=== PATIENT | male | born 1975 | race African-American/Black ===

== ENCOUNTER 2022-01-11 00:53 | Emergency (ER) | payer OTHER ==
[~2022-01-11] VITALS: Ht 165.1 cm; Wt 72.6 kg
[2022-01-11 00:53] VITALS: BP 148/103
[2022-01-11] MEDS ORDERED: KETOROLAC TROMETH 60MG/2ML VIAL IM ONE (07:00)
[2022-01-11] MEDS ORDERED: TETANUS-DIPTH-ACEL PERTUSSIS 0.5ML SYR Tdap IM ONE (07:15)
[2022-01-11] MEDS ORDERED: NEOMYCIN-BACITRACIN-POLYM UNITDOSE PKG TOP OINT TOP ONE (08:00)
== END 2022-01-11 08:02 | disposition home or self-care (01) ==
LOC: ER 00:53
DX: S61.441A Puncture wound with foreign body of right hand, initial encounter (principal); S61.247A Puncture wound with foreign body of left little finger without damage to nail, initial encounter; V89.2XXA Person injured in unspecified motor-vehicle accident, traffic, initial encounter; Y93.89 Activity, other specified; Y92.89 Other specified places as the place of occurrence of the external cause; Y99.8 Other external cause status
CPT/HCPCS: 73130; 90471; 90715; 96372; 99284; J1885